=== PATIENT | male | born 1950 | race Caucasian/White ===

== ENCOUNTER 2024-05-18 13:43 | Outpatient (CLI) | payer MEDICARE, OTHER | END 2024-05-18 13:44 | disposition home or self-care (01) | LOC: BURRAD 13:43 | PROVIDERS: ATTEND Physician Assistant | DX: M54.41 Lumbago with sciatica, right side (principal); M47.816 Spondylosis without myelopathy or radiculopathy, lumbar region; M47.817 Spondylosis without myelopathy or radiculopathy, lumbosacral region | CPT/HCPCS: 72110 ==